=== PATIENT | male | born 1945 | race Caucasian/White ===

== ENCOUNTER 2018-01-22 07:16 | Emergency (ER) | payer OTHER, MEDICAID ==
--- NOTE | 2018-01-22 07:34 | C.PDOC ---
History Of Present Illness 72 y/o male presents to the ER complaining of nasal congestion, cough, headache, and body aches which have been present for the past 4 days. Patient denies having CP, SOB, fever, chills, nausea,vomiting, and abdominal pain.Of note, HPI was obtained by diesel maintenance electrician because patient speaks Grenadian. Time Seen by Provider: 01/22/18 07:24 History Per: Bulk Delivery Driver (occitan) History/Exam Limitations: no limitations Onset/Duration Of Symptoms: Days Current Symptoms Are (Timing): Still Present Severity: Moderate Past Medical History Reviewed: Historical Data, Nursing Documentation, Vital Signs Vital Signs: Last Vital Signs Temp 97.2 F L 01/22/18 07:28 Pulse 74 01/22/18 07:28 Resp 18 01/22/18 07:28 BP 148/85 01/22/18 07:28 Pulse Ox 97 01/22/18 07:28 - Medical History PMH: HTN, Hypercholesterolemia Denies: Chronic Kidney Disease Surgical History: No Surg Hx - [facility] Procedures MEASURE OF ARTERIAL PRESSURE, PERIPHERAL, AIRLINE TICKET AGENT APPROACH (03/15/16) MEASUREMENT OF CARDIAC RHYTHM, EXTERNAL APPROACH (03/15/16) Family History: States: No Known Family Hx - Social History Hx Tobacco Use: No Hx Alcohol Use: No Hx Substance Use: No - Immunization History Hx Tetanus Toxoid Vaccination: No Hx Influenza Vaccination: No Hx Pneumococcal Vaccination: No Review Of Systems Except As Marked, All Systems Reviewed And Found Negative. Constitutional: Positive for: Malaise. Negative for: Fever, Chills ENT: Positive for: Nose Congestion Cardiovascular: Negative for: Chest Pain Respiratory: Positive for: Cough. Negative for: Shortness of Breath Gastrointestinal: Negative for: Nausea, Vomiting Neurological: Positive for: Headache Physical Exam - Physical Exam Appears: Non-toxic, No Acute Distress Skin: Normal Color, Warm, Dry Head: Atraumatic, Normacephalic Eye(s): bilateral: Normal Inspection Ear(s): Bilateral: Normal Nose: Other (nasal congestion) Oral Mucosa: Moist Throat: Normal, No Erythema, No Exudate Neck: Supple Chest: Symmetrical Cardiovascular: Rhythm Regular Respiratory: No Rales, No Rhonchi, Wheezing (occasional expiratory wheezing), Other (bronchial breath sounds) Neurological/Psych: Oriented x3, Normal Speech ED Course And Treatment O2 Sat by Pulse Oximetry: 97 (RA) Pulse Ox Interpretation: Normal - Radiology CXR: Interpreted by Me CXR Interpretation: Yes: No Acute Disease Progress - Data Reviewed Data Reviewed: Diagnostic imaging, Old records Medical Decision Making Medical Decision Making: Plan: --CXR --Albuterol Disposition Counseled Patient/Family Regarding: Studies Performed, Diagnosis, Need For Followup, Rx Given - Disposition Referrals: YOUR,PMD [Other] Disposition: HOME/ ROUTINE Disposition Time: 07:59 Condition: IMPROVED Prescriptions: Albuterol HFA [Ventolin HFA 90 mcg/actuation (8 g)] 1 puff IH Q4 #1 inhaler Azithromycin 250 mg PO DAILY #6 tab Benzonatate [Tessalon Perles] 200 mg PO TID PRN #15 sgl PRN Reason: Cough Ibuprofen [Motrin] 600 mg PO Q6 #30 tab Instructions: Acute Bronchitis, Adult (DC) Print Language: SOMALI - Clinical Impression Clinical Impression: Bronchitis - Scribe Statement The provider has reviewed the documentation as recorded by the Mannieibtyler Stovall Provider Attestation: All medical record entries made by the Mannieibtyler were at my direction and personally dictated by me. I have reviewed the chart and agree that the record accurately reflects my personal performance of the history, physical exam, medical decision making, and the department course for this patient. I have also personally directed, reviewed, and agree with the discharge instructions and disposition.
[2018-01-22] MEDS ORDERED: Albuterol-Ipratrop 3 mg / 0.5 (3 ml) UD ONE (07:47)
[2018-01-22] MEDS: Albuterol 0.083% Inhal Sol (2.5 mg/3 mL) UD INH SCH ×3 (08:00→08:30)
[2018-01-22 08:45] VITALS: BP 164/93; PULSE 93; RESP 22; TEMP 98; O2SAT 95
--- NOTE | 2018-01-22 09:38 | RAD ---
HISTORY: Cough COMPARISON: 01/22/2017. TECHNIQUE: Chest PA and lateral FINDINGS: LINES AND TUBES: None. LUNG AND PLEURA: The lungs are well inflated and clear. No pleural effusion or pneumothorax. HEART AND MEDIASTINUM: The heart is not enlarged. No aortic atherosclerotic calcification present. The hilar and mediastinal contours are within normal limits. SKELETAL STRUCTURES: The bony structures are within normal limits for the patient's age. VISUALIZED UPPER ABDOMEN: Normal. OTHER FINDINGS: None. IMPRESSION: No active pulmonary disease.
== END 2018-01-22 08:45 | disposition home or self-care (01) ==
LOC: C.ER 07:16
DX: J40 Bronchitis, not specified as acute or chronic (principal)

== ENCOUNTER 2018-01-24 14:07 | Emergency (ER) | payer MEDICARE, MEDICAID ==
[2018-01-24 14:48] VITALS: BMI 30.5
[2018-01-24 14:51] VITALS: BP 154/82; PULSE 75; RESP 18; TEMP 98.2; O2SAT 95
--- NOTE | 2018-01-24 15:46 | C.PDOC ---
History Of Present Illness The patient is a 72 year old male who was evaluated in this ED on 01/22 for upper respiratory complaints. Patient underwent a CXR (results negative) and was discharged with prescriptions for Tessalon Perles, Ibuprofen, Zithromax and Albuterol MDI. Patient returns to the ED, stating he still has cough and is requesting a refill for Tessalon. Patient denies fever, chills, chest pain and shortness of breath. Time Seen by Provider: 01/24/18 14:57 Chief Complaint (Nursing): Med Refill History Per: Patient, Conveyor System Dispatcher ([id number]) History/Exam Limitations: no limitations Onset/Duration Of Symptoms: Days Current Symptoms Are (Timing): Still Present Additional History Per: Patient Past Medical History Reviewed: Historical Data, Nursing Documentation, Vital Signs Vital Signs: Last Vital Signs Temp 98.2 F 01/24/18 14:48 Pulse 75 01/24/18 14:48 Resp 18 01/24/18 14:48 BP 154/82 H 01/24/18 14:48 Pulse Ox 95 01/24/18 14:48 - Medical History PMH: HTN, Hypercholesterolemia Denies: Chronic Kidney Disease Surgical History: No Surg Hx - [facility] Procedures MEASURE OF ARTERIAL PRESSURE, PERIPHERAL, EXECUTIVE PERSONAL ASSISTANT APPROACH (03/15/16) MEASUREMENT OF CARDIAC RHYTHM, EXTERNAL APPROACH (03/15/16) Family History: States: Unknown Family Hx - Social History Hx Tobacco Use: No Hx Alcohol Use: No Hx Substance Use: No - Immunization History Hx Tetanus Toxoid Vaccination: No Hx Influenza Vaccination: No Hx Pneumococcal Vaccination: No Review Of Systems Constitutional: Negative for: Fever, Chills ENT: Negative for: Nose Discharge Cardiovascular: Negative for: Chest Pain Respiratory: Positive for: Cough. Negative for: Shortness of Breath Physical Exam - Physical Exam Appears: Non-toxic, No Acute Distress Skin: Normal Color, Warm, Dry Head: Atraumatic, Normacephalic Eye(s): bilateral: Normal Inspection Ear(s): Bilateral: Normal Nose: Normal, No Discharge Oral Mucosa: Moist Throat: Normal, No Erythema, No Exudate Neck: Supple Chest: Symmetrical, No Deformity, No Tenderness Cardiovascular: Rhythm Regular, No Murmur Respiratory: Normal Breath Sounds, No Rales, No Rhonchi, No Wheezing Extremity: Normal ROM, Capillary Refill (less than 2 seconds ) Neurological/Psych: Oriented x3, Normal Speech, Normal Cognition ED Course And Treatment O2 Sat by Pulse Oximetry: 95 (on RA) Pulse Ox Interpretation: Normal Medical Decision Making Medical Decision Making: Progress: On reassessment, patient is resting comfortably, showing no signs of distress and is stable for discharge. Patient is advised to continue taking antibiotics until course is complete. He is advised to take ibuprofen for pain and Use inhaler 1 puff every 4 hours or when outside. Advised to follow up with PMD within a few days for further evaluation and/or return to the ED if symptoms persist or worsen. Disposition Counseled Patient/Family Regarding: Diagnosis, Need For Followup - Disposition Referrals: Yariel Loera MD [Staff Provider] - Disposition: HOME/ ROUTINE Disposition Time: 15:47 Condition: GOOD Additional Instructions: Por favor contine tomando antibiticos hasta que termine; ry ibuprofeno para el dolor. Use el inhalador 1 inhalador cada 4 horas o cuando est afuera. Folleto con el Dr. Loera en unos pocos [place]. Please continue taking antibiotics until done; take ibuprofen for pain. Use inhaler 1 puff every 4 hours or when outside. FOllow up with Dr Loera in a few days. Instructions: Acute Bronchitis, Adult (DC) Forms: Gen Discharge Inst Czech, [facility] (Czech) Print Language: AMHARIC - Clinical Impression Clinical Impression: Bronchitis - PA / EYE SURGEON / Resident Statement MD/DO has reviewed & agrees with the documentation as recorded. - Scribe Statement The provider has reviewed the documentation as recorded by the Scribe (Fernanda Gilman) All medical record entries made by the Scribe were at my direction and personally dictated by me. I have reviewed the chart and agree that the record accurately reflects my personal performance of the history, physical exam, medical decision making, and the department course for this patient. I have also personally directed, reviewed, and agree with the discharge instructions and disposition.
== END 2018-01-24 15:50 | disposition home or self-care (01) ==
LOC: C.ER 14:07
DX: J40 Bronchitis, not specified as acute or chronic (principal)

== ENCOUNTER 2018-04-30 08:18 | Emergency (ER) | payer MEDICARE, MEDICAID ==
[2018-04-30 08:31] VITALS: RESP 18; TEMP 97.9; BMI 25.9
--- NOTE | 2018-04-30 09:12 | C.PDOC ---
History Of Present Illness 72 y/o male with hx prostate problem and htn presents to ED with 3 days of frontal headache. pt sts his bp has been elevated at home 170s to 190s though he has been compliant with his medications. pt reports momentary chest pain y esterday as well as nausea and abdominal pain with one episode vomiting yesterday. paraprofessional interpreter Flower #[id number] used; pt is poor historian. denies cp at this time, does complain of headache. Time Seen by Provider: 04/30/18 08:38 Chief Complaint (Nursing): High Blood Pressure History Per: Patient History/Exam Limitations: language barrier (Flower [id number]) Onset/Duration Of Symptoms: Days (3) Current Symptoms Are (Timing): Still Present Associated Symptoms: Chest Pain, Headache Exacerbating Factor(s): Neg: Recently Missed Doses Of Medication Past Medical History Reviewed: Historical Data, Nursing Documentation, Vital Signs Vital Signs: Last Vital Signs Temp 97.9 F 04/30/18 08:27 Pulse 76 04/30/18 08:27 Resp 18 04/30/18 08:27 BP 163/90 H 04/30/18 08:35 Pulse Ox 97 04/30/18 08:27 - Medical History PMH: HTN, Hypercholesterolemia Denies: Chronic Kidney Disease Other PMH: prostate - [facility] Procedures MEASURE OF ARTERIAL PRESSURE, PERIPHERAL, FLANGER APPROACH (03/15/16) MEASUREMENT OF CARDIAC RHYTHM, EXTERNAL APPROACH (03/15/16) Family History: States: Unknown Family Hx - Social History Hx Tobacco Use: No Hx Alcohol Use: No Hx Substance Use: No - Immunization History Hx Tetanus Toxoid Vaccination: No Hx Influenza Vaccination: No Hx Pneumococcal Vaccination: No Review Of Systems Constitutional: Negative for: Fever, Chills ENT: Negative for: Throat Pain Cardiovascular: Negative for: Chest Pain Respiratory: Negative for: Cough, Shortness of Breath Gastrointestinal: Positive for: Nausea, Vomiting Musculoskeletal: Negative for: Neck Pain, Shoulder Pain Skin: Negative for: Rash Neurological: Positive for: Headache. Negative for: Weakness, Numbness, Dizziness Physical Exam - Physical Exam Appears: Non-toxic, No Acute Distress Skin: Warm, Dry Head: Atraumatic, Normacephalic Eye(s): bilateral: Normal Inspection, PERRL, EOMI Ear(s): Bilateral: Normal Neck: Supple Chest: No Deformity, No Tenderness Cardiovascular: Rhythm Regular, No Murmur Respiratory: No Decreased Breath Sounds, No Rales, No Rhonchi, No Wheezing Gastrointestinal/Abdominal: Bowel Sounds, Soft, No Tenderness, No Distention, No Guarding, No Rebound Extremity: No Pedal Edema, No Calf Tenderness Pulses: Left Dorsalis Pedis: Normal, Right Dorsalis Pedis: Normal Neurological/Psych: Oriented x3, Normal Speech, Normal Cognition, Normal Cranial Nerves, Normal Motor, Normal Sensation ED Course And Treatment - Laboratory Results Result Diagrams: 04/30/18 09:22 04/30/18 09:22 ECG: Interpreted By Me, Viewed By Me ECG Rhythm: Sinus Rhythm Interpretation Of ECG: NSR with 1st degree AV Block Rate From EC O2 Sat by Pulse Oximetry: 97 Medical Decision Making Medical Decision Making: pt with cp yesterday, elevated bp,headache; get ekg, head ct, labs, re-eval. 1250 pt resting comfortably. has normal labs, neg head ct, no acute changes on ekg. pt reports decrease in headache after tylenol. pt discussed with Dr Loera, he has appt with Dr Loera [id number] at 2 pm. pt advised he should go to his appt. will d/c home with Tylenol Disposition Discussed With Dr.: Yariel Loera Doctor Will See Patient In The: Office Counseled Patient/Family Regarding: Studies Performed, Diagnosis, Need For Followup, Rx Given - Disposition Referrals: Yariel Loera MD [Staff Provider] - Disposition: HOME/ ROUTINE Disposition Time: 12:53 Condition: GOOD Additional Instructions: Follow up with Dr Loera on Monday, tomorrow at 2 pm. Take your medications as prescribed. Seguimiento con el Dr. Loera el jean. maana a las 2 de la tarde. [place] perez medicamentos segn lo prescrito. Prescriptions: Acetaminophen [Tylenol 325mg tab] 650 mg PO Q6 #30 tab Instructions: High Blood Pressure (DC), Headache, Adult (DC) Forms: Gen Discharge Inst Mozambican, [facility] (Mozambican) Print Language: FAROESE - Clinical Impression Clinical Impression: Hypertension, Headache
[2018-04-30 09:27] LABS: BASO % 0.5 % (0.0-2.0); EOS # 0.1 K/uL (0.0-0.7); EOS % 1.2 % (0.0-4.0); HEMOGLOBIN 17.1 g/dL (12.0-18.0); LYMPH # 1.6 K/uL (1.0-4.3); LYMPH % 26.9 % (20.0-40.0); MEAN CELL VOLUME 95.2 fL (80.0-94.0); MEAN CORPUSCULAR HEMOGLOBIN 33.3 pg (27.0-31.0); MEAN PLATELET VOLUME 8.1 fL (7.2-11.7); MONO # 0.5 K/uL (0.0-0.8); MONO % 7.6 % (0.0-10.0); NEUT # 3.9 K/uL (1.8-7.0); NEUT % 63.8 % (50.0-75.0); NRBC % 0.1 % (0.0-2.0); RBC 5.13 Mil/uL (4.40-5.90); RED CELL DISTRIBUTION WIDTH 13.8 % (11.5-14.5); WHITE BLOOD COUNT 6.1 K/uL (4.8-10.8)
[2018-04-30 09:32] LABS: SQUAMOUS EPITHIAL < 1 /hpf (0-5); URINE BACTERIA RARE (<OCC); URINE BILIRUBIN NEGATIVE (NEGATIVE); URINE BLOOD NEGATIVE (NEGATIVE); URINE CLARITY Hazy (Clear); URINE COLOR Yellow (YELLOW); URINE GLUCOSE (UA) NORMAL (Normal); URINE LEUKOCYTE ESTERASE NEG Leu/uL (Negative); URINE PROTEIN 2+ mg/dL (NEGATIVE); URINE UROBILINOGEN NORMAL mg/dL (0.2-1.0)
[2018-04-30 09:44] LABS: ALB/GLOB RATIO 1.8 (1.0-2.1); ALBUMIN 4.5 g/dL (3.5-5.0); ALT/SGPT 43 U/L (21-72); AST/SGOT 40 U/L (17-59); BLOOD UREA NITROGEN 16 mg/dL (9-20); GFR NON-AFRICAN AMERICAN > 60
--- NOTE | 2018-04-30 10:02 | CT ---
Date of service: 04/30/2018 PROCEDURE: CT HEAD WITHOUT CONTRAST. HISTORY: elevated blood pressure and frontal headache COMPARISON: 03/11/2016 TECHNIQUE: Axial computed tomography images were obtained through the head/brain without intravenous contrast. Radiation dose: Total exam DLP = 1120.58 mGy-cm. This CT exam was performed using one or more of the following dose reduction techniques: Automated exposure control, adjustment of the mA and/or kV according to patient size, and/or use of iterative reconstruction technique. FINDINGS: HEMORRHAGE: No intracranial hemorrhage. BRAIN: No mass effect or edema. Scattered focal lucencies in the subcortical and periventricular white matter suggestive for chronic microvascular ischemic change. Diffuse generalized parenchymal atrophy. VENTRICLES: Unremarkable. No hydrocephalus. CALVARIUM: Unremarkable. PARANASAL SINUSES: Mild mucosal thickening of the sphenoid sinus and ethmoid air cells. MASTOID AIR CELLS: Unremarkable as visualized. No inflammatory changes. OTHER FINDINGS: None. IMPRESSION: No acute intracranial abnormality. Chronic microvascular ischemic changes. Additional findings as above. If symptoms persists, consider correlation with MRI.
[2018-04-30 11:23] VITALS: PULSE 68
[2018-04-30 11:31] VITALS: O2SAT 97
[2018-04-30 11:57] VITALS: BP 144/93
== END 2018-04-30 13:51 | disposition home or self-care (01) ==
LOC: C.ER 08:18
DX: I10 Essential (primary) hypertension (principal); R51 Headache